=== PATIENT | male | born 1945 | race Caucasian/White ===

== ENCOUNTER 2017-09-16 12:52 | Inpatient (IN) | payer MEDICARE, OTHER ==
[~2017-09-16] VITALS: Ht 177.8 cm; Wt 132.3 kg
[2017-09-16 13:20] LABS: BASOPHILS % (AUTO) 0.5 % (0.0-5.0); EOSINOPHILS % (AUTO) 0.9 % (0.0-8.0); HEMATOCRIT 42.3 % (42-54); LYMPHOCYTES % (AUTO) 26.4 % (21.0-51.0); MEAN CORPUSCULAR HEMOGLOBIN 32.6 pg (27.0-33.0); MEAN CORPUSCULAR HGB CONC 34.2 g/dL (32.0-36.0); MEAN CORPUSCULAR VOLUME 95.2 fL (79-99); MONOCYTES % (AUTO) 7.9 % (3.0-13.0); NEUTROPHILS % (AUTO) 64.3 % (40.0-77.0); PLATELET COUNT (AUTO) 168 K/uL (130-400); RED BLOOD CELL COUNT(AUTO) 4.44 MIL/uL (4.50-6.20); WHITE BLOOD COUNT (AUTO) 7.7 K/uL (4.8-10.8)
[2017-09-16 13:31] LABS: CREATININE 1.3 mg/dL (0.5-1.5); POTASSIUM 4.3 mmol/L (3.5-5.1)
[2017-09-16 13:36] LABS: ALBUMIN 3.7 g/dL (3.5-5.0); BILIRUBIN,TOTAL 0.3 mg/dL (0.2-1.0)
[2017-09-16 13:40] LABS: INR 0.99 (0.85-1.15); PARTIAL THROMBOPLASTIN TIME 23.2 SEC (26.3-35.5); PROTHROMBIN TIME 10.2 SEC (9.6-11.6)
[2017-09-16] MEDS ORDERED: ASPIRIN 325 MG TABLET ONE ×2 (16:21→16:22)
[2017-09-16] MEDS ORDERED: ONDANSETRON HCL 4 MG/2 ML VIAL IVP PRN (19:45)
[2017-09-16] MEDS ORDERED: ACETAMINOPHEN 325 MG TAB PO PRN (19:45)
[2017-09-16] MEDS ORDERED: GLUCAGON 1MG KIT 1 MG ML IM PRN (19:45)
[2017-09-16] MEDS ORDERED: HYDRALAZINE HCL 20 MG/ML VIAL IM PRN (19:45)
[2017-09-16] MEDS ORDERED: DEXTROSE 50%-WATER 50 ML DISP.SYRIN IV PRN (19:45)
[2017-09-16] MEDS ORDERED: FAMOTIDINE 20MG TAB 20 MG TAB PO SCH (19:45)
[2017-09-16] MEDS: INSULIN HUMULIN R 100 UNIT/ML 3ML SQ SCH (21:00)
[2017-09-16] MEDS ORDERED: FAMOTIDINE 20MG TAB 20 MG TAB ONE (21:06)
[2017-09-16 22:39] VITALS: BP 151/98
[2017-09-17 04:20] LABS: BASOPHILS % (AUTO) 0.6 % (0.0-5.0); EOSINOPHILS % (AUTO) 1.6 % (0.0-8.0); HEMATOCRIT 40.5 % (42-54); LYMPHOCYTES % (AUTO) 33.8 % (21.0-51.0); MEAN CORPUSCULAR HEMOGLOBIN 31.9 pg (27.0-33.0); MEAN CORPUSCULAR HGB CONC 33.4 g/dL (32.0-36.0); MEAN CORPUSCULAR VOLUME 95.4 fL (79-99); MONOCYTES % (AUTO) 8.6 % (3.0-13.0); NEUTROPHILS % (AUTO) 55.4 % (40.0-77.0); PLATELET COUNT (AUTO) 140 K/uL (130-400); RED BLOOD CELL COUNT(AUTO) 4.24 MIL/uL (4.50-6.20); RED CELL DISTRIBUTION WIDTH 13.8 % (11.0-15.5); WHITE BLOOD COUNT (AUTO) 7.6 K/uL (4.8-10.8)
[2017-09-17 04:30] VITALS: BP 129/83
[2017-09-17 04:35] LABS: CREATININE 1.2 mg/dL (0.5-1.5)
[2017-09-17 04:36] LABS: HEMOGLOBIN A1C 6.8 % (4.0-6.0)
[2017-09-17] MEDS: INSULIN DETEMIR 10ML 100 UNIT/ML 10ML SQ SCH (06:57)
[2017-09-17] MEDS: INSULIN HUMULIN R 100 UNIT/ML 3ML SQ SCH ×4 (06:58→21:40)
[2017-09-17 07:00] VITALS: BP 149/88
[2017-09-17] MEDS ORDERED: INSULIN DETEMIR 10ML 100 UNIT/ML 10ML SQ SCH (07:30)
[2017-09-17] MEDS ORDERED: ASPIRIN 325MG EC TAB 325 MG TABLET.DR PO SCH (09:00)
[2017-09-17 12:20] VITALS: BP 135/75
[2017-09-17 16:00] VITALS: BP 162/90
[2017-09-17 20:00] VITALS: BP 144/78
[2017-09-17] MEDS ORDERED: ATORVASTATIN CALCIUM 20 MG TABLET PO SCH (21:00)
[2017-09-17 23:49] VITALS: BP 125/66
[2017-09-18 03:55] VITALS: BP 111/60
[2017-09-18 04:38] LABS: HEMATOCRIT 39.5 % (42-54); MEAN CORPUSCULAR HEMOGLOBIN 32.7 pg (27.0-33.0); MEAN CORPUSCULAR HGB CONC 34.4 g/dL (32.0-36.0); MEAN CORPUSCULAR VOLUME 95.1 fL (79-99); PLATELET COUNT (AUTO) 143 K/uL (130-400); RED BLOOD CELL COUNT(AUTO) 4.16 MIL/uL (4.50-6.20); RED CELL DISTRIBUTION WIDTH 13.8 % (11.0-15.5); WHITE BLOOD COUNT (AUTO) 6.7 K/uL (4.8-10.8)
[2017-09-18 04:46] LABS: CREATININE 1.2 mg/dL (0.5-1.5); POTASSIUM 3.8 mmol/L (3.5-5.1)
[2017-09-18] MEDS: INSULIN DETEMIR 10ML 100 UNIT/ML 10ML SQ SCH (06:30)
[2017-09-18] MEDS: INSULIN HUMULIN R 100 UNIT/ML 3ML SQ SCH ×2 (06:32→11:30)
[2017-09-18 07:52] VITALS: BP 147/93
[2017-09-18] MEDS ORDERED: APIXABAN 5 MG TABLET PO SCH (09:00)
[2017-09-18] MEDS ORDERED: APIX5TAB PO (09:32)
[2017-09-18] MEDS ORDERED: ATOR40TA69 PO (10:03)
[2017-09-18] MEDS ORDERED: METF850T2 PO (11:09)
[2017-09-18] MEDS ORDERED: TERA2CAP4 PO (11:09)
[2017-09-18] MEDS ORDERED: ASPI-555 PO (11:09)
[2017-09-18] MEDS ORDERED: ATEN25TA PO (11:09)
[2017-09-18] MEDS ORDERED: NIAC500T22 PO (11:46)
[2017-09-18] MEDS ORDERED: OMEG-125 PO (11:46)
== END 2017-09-18 12:25 | disposition home or self-care (01) | DRG 65 ==
LOC: EDH 12:52 → EDHIP 17:25 → 2DH 22:20
PROVIDERS: ADMIT Internal Medicine Nephrology; ATTEND Internal Medicine Nephrology
PROC: 5A09357 Assistance with Respiratory Ventilation, Less than 24 Consecutive Hours, Continuous Positive Airway Pressure (ICD-10-PCS; principal; 2017-09-17)
PROC: 5A09357 Assistance with Respiratory Ventilation, Less than 24 Consecutive Hours, Continuous Positive Airway Pressure (ICD-10-PCS; 2017-09-18)
DX: I63.9 Cerebral infarction, unspecified (principal); Z68.41 Body mass index [BMI] 40.0-44.9, adult; E11.40 Type 2 diabetes mellitus with diabetic neuropathy, unspecified; E11.65 Type 2 diabetes mellitus with hyperglycemia; H49.22 Sixth [abducent] nerve palsy, left eye; I48.2 Chronic atrial fibrillation; E66.01 Morbid (severe) obesity due to excess calories; E78.5 Hyperlipidemia, unspecified; G47.33 Obstructive sleep apnea (adult) (pediatric); I10 Essential (primary) hypertension; J44.9 Chronic obstructive pulmonary disease, unspecified; N40.0 Benign prostatic hyperplasia without lower urinary tract symptoms; Z79.01 Long term (current) use of anticoagulants; Z87.891 Personal history of nicotine dependence; Z83.3 Family history of diabetes mellitus; Z82.49 Family history of ischemic heart disease and other diseases of the circulatory system
CPT/HCPCS: 36415; 70450; 70544; 70547; 70551; 80048; 80053; 80061; 82550; 82948; 83036; 84484; 85025; 85027; 85610; 85730; 93005; 93306; 99291; J1815

== ENCOUNTER → 2020-04-13 | Outpatient (CLI) | payer MEDICARE ==
[~2020-04-13] MED LIST: APIX5TAB PO; ATEN25TA PO; METF-445 PO; NIAC500T22 PO; OMEG-125 PO; TERA2CAP4 PO
== END | disposition home or self-care (01) ==
LOC: RAH 14:55
PROVIDERS: ATTEND Orthopaedic Surgery
DX: M48.062 Spinal stenosis, lumbar region with neurogenic claudication (principal); M54.5 Low back pain
CPT/HCPCS: 72148